=== PATIENT | female | born 1985 | race Caucasian/White ===

== ENCOUNTER → 2021-03-14 | Day surgery (SDC) | payer BC ==
[~2021-03-14] MED LIST: DEXAMETHASONE SOD PHOS 10 MG/1 ML VIAL ONE; EPHEDRINE SULFATE INJ 50 MG/ML VIAL ONE; FENTANYL CITRATE/PF 100MCG/2 ML INJ ONE; GABAPENTIN300 MG PO; IOPAMIDOL 200 MG/ML 20 ML VIAL IT ONE; LAMICTAL100 MG PO; LIDOCAINE HCL 1% 30ML-PF VIAL ONE; MIDAZOLAM HCL 2 MG/2 ML VIAL ONE; POVIDONE IODINE 0.05% 0.05 % ML PO ONE; PROPOFOL IV EMULSION 10 MG/ML 20 ML VIAL ONE; TYLENOL #3 PO
[2021-03-14 07:30] VITALS: BP 105/64
== END | disposition home or self-care (01) ==
LOC: OR 05:30
PROVIDERS: ATTEND Physical Medicine & Rehabilitation Pain Medicine
DX: M51.26 Other intervertebral disc displacement, lumbar region (principal); M54.16 Radiculopathy, lumbar region; Z91.013 Allergy to seafood; G40.909 Epilepsy, unspecified, not intractable, without status epilepticus; Z79.899 Other long term (current) drug therapy
CPT/HCPCS: 64483; 81025; J1100; J2001; J2250; J2704; J3010; Q9967; 77003

== ENCOUNTER → 2021-04-11 | Day surgery (SDC) | payer BC ==
[~2021-04-11] MED LIST changes: +BUPIVACAINE 0.25% 30ML SDV ONE; -EPHEDRINE SULFATE INJ 50 MG/ML VIAL ONE; -FENTANYL CITRATE/PF 100MCG/2 ML INJ ONE
[2021-04-11 07:31] VITALS: BP 96/45
== END | disposition home or self-care (01) ==
LOC: OR 05:47
PROVIDERS: ATTEND Physical Medicine & Rehabilitation Pain Medicine
DX: M51.16 Intervertebral disc disorders with radiculopathy, lumbar region (principal); M46.1 Sacroiliitis, not elsewhere classified; G40.909 Epilepsy, unspecified, not intractable, without status epilepticus; Z91.013 Allergy to seafood; Z79.899 Other long term (current) drug therapy; Z86.16 Personal history of COVID-19
CPT/HCPCS: 64483; 81025; J1100; J2001; J2250; J2704; Q9967; 77003

== ENCOUNTER → 2021-05-30 | Day surgery (SDC) | payer BC ==
[~2021-05-30] MED LIST changes: -BUPIVACAINE 0.25% 30ML SDV ONE; +BUPIVACAINE HCL 0.5% INJ 30 ML VIAL INJ ONE; +CELEBREX200 MG PO; -DEXAMETHASONE SOD PHOS 10 MG/1 ML VIAL ONE; +MUSCLE RELAXER PO; -POVIDONE IODINE 0.05% 0.05 % ML PO ONE; +ULTRAM50 MG PO
[2021-05-30 08:04] VITALS: BP 110/62
== END | disposition home or self-care (01) ==
LOC: OR 05:39
PROVIDERS: ATTEND Physical Medicine & Rehabilitation Pain Medicine
DX: M47.896 Other spondylosis, lumbar region (principal); G40.909 Epilepsy, unspecified, not intractable, without status epilepticus; Z91.013 Allergy to seafood; Z01.812 Encounter for preprocedural laboratory examination; Z20.822 Contact with and (suspected) exposure to COVID-19; Z79.899 Other long term (current) drug therapy
CPT/HCPCS: 64493; 64494; 64495; 77003; 81025; J2001; J2250; J2704; Q9967; U0002

== ENCOUNTER → 2021-09-05 | Day surgery (SDC) | payer BC ==
[~2021-09-05] MED LIST changes: +BUPIVACAINE 0.25% 30ML SDV ONE; -BUPIVACAINE HCL 0.5% INJ 30 ML VIAL INJ ONE; +LIDOCAINE HCL 2% LOCAL INJ 5 ML SDV VIAL INJ ONE; +POVIDONE IODINE 0.05% 0.05 % ML PO ONE
[2021-09-05 08:00] VITALS: BP 100/59
== END | disposition home or self-care (01) ==
LOC: OR 05:47
PROVIDERS: ATTEND Physical Medicine & Rehabilitation Pain Medicine
DX: M47.896 Other spondylosis, lumbar region (principal); M46.1 Sacroiliitis, not elsewhere classified; Z91.013 Allergy to seafood; G40.909 Epilepsy, unspecified, not intractable, without status epilepticus; Z01.812 Encounter for preprocedural laboratory examination; Z20.822 Contact with and (suspected) exposure to COVID-19
CPT/HCPCS: 0223U; 36415; 64493; 64494; 64495; 77003; 81025; J2001 ×2; J2250; J2704; Q9967

== ENCOUNTER 2022-01-21 13:01 | Emergency (ER) | payer BC ==
[~2022-01-21] VITALS: Ht 172.7 cm; Wt 54.4 kg
[~2022-01-21 13:01] MED LIST changes: -BUPIVACAINE 0.25% 30ML SDV ONE; -IOPAMIDOL 200 MG/ML 20 ML VIAL IT ONE; -LIDOCAINE HCL 1% 30ML-PF VIAL ONE; -LIDOCAINE HCL 2% LOCAL INJ 5 ML SDV VIAL INJ ONE; -MIDAZOLAM HCL 2 MG/2 ML VIAL ONE; -POVIDONE IODINE 0.05% 0.05 % ML PO ONE; -PROPOFOL IV EMULSION 10 MG/ML 20 ML VIAL ONE
[2022-01-21] MEDS ORDERED: HYDROXYZINE HCL 25 MG TAB PO ONE (13:45)
[2022-01-21 16:33] VITALS: BP 116/84
[2022-01-21] MEDS ORDERED: ACETAMINOPHEN-1 EAC4 PO (16:48)
[2022-01-21] MEDS ORDERED: MEDROL4 M2 PO (16:49)
[2022-01-21] MEDS ORDERED: METHOCARBAMOL750 MG PO (16:49)
== END 2022-01-21 17:45 | disposition home or self-care (01) ==
LOC: ER 13:10
DX: M51.26 Other intervertebral disc displacement, lumbar region (principal); G89.29 Other chronic pain; G40.909 Epilepsy, unspecified, not intractable, without status epilepticus
CPT/HCPCS: 72148; 99283; J3410